=== PATIENT | female | born 1980 | race Caucasian/White ===

== ENCOUNTER 2019-05-30 12:39 | Emergency (ER) | payer MEDICAID, OTHER ==
[~2019-05-30] VITALS: Ht 157.5 cm; Wt 56.3 kg
[2019-05-30 12:40] VITALS: BP 115/73
--- NOTE | 2019-05-30 13:04 | NUR ---
Jenae freitas in [facility] - 05/30/19 at 1304 by CAMILLE PT AMBULATED TO BED 04.
--- NOTE | 2019-05-30 13:04 | NUR ---
PT AMBULATED TO ER BED 4
[2019-05-30] MEDS ORDERED: IBUP-2213 PO (13:09)
[2019-05-30] MEDS ORDERED: LEVO100P PO (13:09)
--- NOTE | 2019-05-30 13:41 | NUR ---
DR. TUBBS EVALUATING PATIENT.
[2019-05-30 14:41] VITALS: BP 110/75
--- NOTE | 2019-05-30 14:41 | NUR ---
Patient discharged with v/s stable. Written and verbal after care instructions given and explained. Patient alert, oriented and verbalized understanding of instructions. Ambulatory with steady gait. All questions addressed prior to discharge. ID band removed. Patient advised to follow up with PMD. Rx of SYNTHROID given. Patient educated on indication of medication including possible reaction and side effects. Opportunity to ask questions provided and answered.
== END 2019-05-30 14:41 | disposition home or self-care (01) ==
LOC: MED 12:39
DX: M54.5 Low back pain (principal); Z79.1 Long term (current) use of non-steroidal anti-inflammatories (NSAID); Z79.899 Other long term (current) drug therapy; Z76.0 Encounter for issue of repeat prescription; Z86.39 Personal history of other endocrine, nutritional and metabolic disease
CPT/HCPCS: 81002; 81025; 99283